=== PATIENT | male | born 1965 | race Caucasian/White ===

== ENCOUNTER 2016-12-17 18:55 | Emergency (ER) | payer SELFPAY ==
[~2016-12-17] VITALS: Ht 172.7 cm; Wt 70.3 kg
[2016-12-17 19:18] VITALS: BP 110/60
--- NOTE | 2016-12-17 21:30 | NUR ---
CALLED X4; NOT IN LOBBY
== END 2016-12-18 01:00 | disposition left against medical advice (07) ==
LOC: ER 18:58
DX: Z53.21 Procedure and treatment not carried out due to patient leaving prior to being seen by health care provider (principal)
CPT/HCPCS: A4606; Z7610